=== PATIENT | female | born 1950 | race Caucasian/White ===

== ENCOUNTER → 2019-03-20 | Outpatient (CLI) | payer MEDICARE, BC ==
[~2019-03-20] MED LIST: ATEN50; Amaryl1 MG; B-Complex With1 EACH; CALCIUM 500 +1 EAC3; FISH1000; Glucosamine H1500 MG; IBUP800; LISHYD2025; Multivitamin1 EAC1; PRAV20
[2019-03-20 16:49] LABS: Alanine Aminotransfer (ALT/SGP 33 U/L (12-78); Albumin, Blood 3.9 g/dL (3.4-5.0); Albumin/Globulin Ratio 1.4 (0.8-1.8); Alk Phos 73 U/L (50-136); Anion Gap 5 mmol/L (6-16); Aspartate Aminotrans (AST/SGOT 16 U/L (12-37); Bilirubin, Total 0.4 mg/dL (0.1-1.0); Blood Urea Nitrogen 15 mg/dL (8-24); Bun/Creatinine Ratio 21.6 (12.0-20.0); CHOL/HDL RATIO 4.7; CO2, Blood 28 mmol/L (21-32); Chloride, Blood 105 mmol/L (98-108); Cholesterol 205 mg/dL (50-200); Creatinine, Blood 0.69 mg/dL (0.40-1.00); Globulin, Blood 2.8 g/dL (2.2-4.0); Glomerular Filtration Rate >60 (60-); Glucose, Blood 164 mg/dL (70-99); HDL Cholesterol 44 mg/dL (>39); LDL/HDL RATIO 2.5; Low Density Lipoprotein Chol 112 mg/dL (0-110); Potassium, Blood 4.3 mmol/L (3.5-5.5); Sodium, Blood 138 mmol/L (136-145); Total Protein, Blood 6.7 g/dL (6.4-8.2); Triglycerides 245 mg/dL (30-160); Very Low Density Lipoprot Chol 49 mg/dL (6-32)
== END | disposition home or self-care (01) ==
LOC: LAB 09:56 → LAB SHORT 09:56
PROVIDERS: Hospitalist
DX: E11.51 Type 2 diabetes mellitus with diabetic peripheral angiopathy without gangrene (principal); E78.5 Hyperlipidemia, unspecified; I10 Essential (primary) hypertension
CPT/HCPCS: 80053; 80061; 82043

== ENCOUNTER → 2020-05-03 | Outpatient (CLI) | payer MEDICARE, BC | END | disposition home or self-care (01) | LOC: LAB SHORT 14:23 → LAB 14:23 | DX: E11.9 Type 2 diabetes mellitus without complications (principal) | CPT/HCPCS: 82043 ==

== ENCOUNTER → 2022-10-19 | Outpatient (CLI) | payer MEDICARE | END | disposition home or self-care (01) | LOC: LAB 08:45 → LAB SHORT 08:45 | DX: E11.69 Type 2 diabetes mellitus with other specified complication (principal) | CPT/HCPCS: 82043 ==

== ENCOUNTER → 2025-01-20 | Outpatient (CLI) | payer MEDICARE ==
[2025-01-20 11:05] LABS: BASOPHILS ABSOLUTE AUTO 0.05 K/mm3 (0.00-0.23); BASOPHILS PERCENT AUTO 1 % (0-2); EOSINOPHILS ABSOLUTE AUTO 0.10 K/mm3 (0.00-0.68); EOSINOPHILS PERCENT AUTO 1 % (0-6); Hematocrit 41.5 % (33.0-51.0); Hemoglobin 14.1 g/dL (11.5-16.0); IMMATURE GRAN ABSOLUTE AUTO 0.03 K/mm3 (0.00-0.10); IMMATURE GRAN PERCENT AUTO 0 % (0-1); LYMPHOCYTES ABSOLUTE AUTO 1.68 K/mm3 (0.84-5.20); LYMPHOCYTES PERCENT AUTO 18 % (21-46); MONOCYTES ABSOLUTE AUTO 0.54 K/mm3 (0.16-1.47); MONOCYTES PERCENT AUTO 6 % (4-13); Mean Corpuscular HGB Conc 34.0 g/dL (31.5-36.5); Mean Corpuscular Volume 92 fL (80-100); NEUTROPHILS ABSOLUTE AUTO 6.84 K/mm3 (1.96-9.15); NEUTROPHILS PERCENT AUTO 74 % (41-73); NRBC ABSOLUTE 0.00 K/mm3 (0.00-0.02); NRBC Auto 0.0 /100 WBC (0.0-0.2); Platelet Count 274 K/mm3 (150-400); RDW Coefficient Variation 13.4 % (11.7-14.2); RDW Standard Deviation 45.4 fL (35.1-46.3)
[2025-01-20 11:58] LABS: C-REACTIVE PROTEIN, EXT RANGE <0.290 mg/dL (0.000-0.300)
[2025-01-20 11:59] LABS: Anion Gap 9 mmol/L (3-11); Blood Urea Nitrogen 16 mg/dL (8-24); CO2, Blood 30 mmol/L (21-32); Calcium, Blood 9.8 mg/dL (8.5-10.1); Chloride, Blood 100 mmol/L (98-108); Creatinine, Blood 0.73 mg/dL (0.40-1.00); Glucose, Blood 277 mg/dL (70-99); Potassium, Blood 3.8 mmol/L (3.5-5.5); Sodium, Blood 135 mmol/L (136-145)
== END | disposition home or self-care (01) ==
LOC: LAB SHORT 10:15 → LAB 10:15
PROVIDERS: Hospitalist
DX: E11.69 Type 2 diabetes mellitus with other specified complication (principal); M79.601 Pain in right arm
CPT/HCPCS: 80048; 83036; 85025; 85379; 85651; 86140

== ENCOUNTER → 2025-01-21 | Outpatient (CLI) | payer MEDICARE ==
[2025-01-21 17:25] LABS: Creatinine, Urine Random 132.0 mg/dL (27.00-270.00); Microalb/Creat Ratio UR, Rand 120.455 mg/g (0.000-30.000); Microalbumin, Random Urine 159.0 mg/L (0.000-20.000)
== END | disposition home or self-care (01) ==
LOC: LAB SHORT 13:23 → LAB 13:23
PROVIDERS: Hospitalist
DX: E11.52 Type 2 diabetes mellitus with diabetic peripheral angiopathy with gangrene (principal)
CPT/HCPCS: 82043; 82570